=== PATIENT | male | born 1995 | race Caucasian/White ===

== ENCOUNTER 2016-06-04 04:19 | Emergency (ER) | payer OTHER ==
[2016-06-04] MEDS ORDERED: DIPH,PERTUS(ACELL)TETVAC-LF 0.5 ML VIAL IM ONE (04:29)
[2016-06-04] MEDS ORDERED: RX INFO: IV CONTRAST WAS GIVEN 1 EACH MISC MISCELLANE PRN (04:29)
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
[2016-06-04] MEDS ORDERED: ONDANSETRON 4 MG/2 ML VIAL IVP STA (04:48)
[2016-06-04 05:07] LABS: Glucose,Whole Blood 112 mg/dL (75-99)
[2016-06-04 05:20] LABS: Basophils % (A) 0 %; CH 32.3; CHCM 35.1; Eosinophils # (A) 0.1 k/uL (0-0.7); Eosinophils % (A) 0 %; HDW 2.45; HGB 16.8 gm/dL (13.0-17.5); Luc # (Auto) 0.18; Luc % (Auto) 1; Lymphocytes # (A) 1.8 k/uL (1.0-4.8); Lymphocytes % (A) 12 %; MCH 31.7 pg (25.0-35.0); MCHC 34.3 g/dL (31.0-37.0); MCV 92.3 fL (80.0-100.0); Mean Platelet Volume 7.6; Monocytes # (A) 0.8 k/uL (0-1.0); Monocytes % (A) 5 %; Neutrophils # (A) 12.5 k/uL (1.3-7.7); Neutrophils % (A) 82 %; RBC 5.31 m/uL (4.30-5.90); RDW 12.2 % (11.5-15.5); WBC 15.4 k/uL (3.8-10.6); WBC (Perox) 15.58
[2016-06-04 05:26] LABS: Partial Thromboplastin Time 23.4 sec (22.0-30.0); Prothrombin Time 10.5 sec (9.0-12.0)
[2016-06-04 05:28] LABS: ALT 62 U/L (21-72); AST 30 U/L (17-59); Alcohol 22 mg/dL; Alkaline Phosphatase 68 U/L (38-126); Amylase 56 U/L (30-110); Anion Gap 13 mmol/L; Blood Urea Nitrogen 12 mg/dL (9-20); Calcium 9.4 mg/dL (8.4-10.2); Carbon Dioxide 24 mmol/L (22-30); Chloride 107 mmol/L (98-107); Glucose 111 mg/dL (74-99); Non-African American GFR(MDRD) >60 (>60 ml/min/1.73 sqM); Sodium 144 mmol/L (137-145); Total Bilirubin 0.7 mg/dL (0.2-1.3); Total Protein 7.7 g/dL (6.3-8.2)
[2016-06-04 05:39] LABS: Creatine Kinase 232 U/L (55-170)
[2016-06-04 05:52] LABS: Creatine Kinase MB 1.1 ng/mL (0.0-2.4); Troponin I <0.012 ng/mL (0.000-0.034)
[2016-06-04] MEDS ORDERED: ceFAZolin 2 GM in SODIUM CHLORIDE 0.9% 100 ML IVPB STA (07:14)
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
[2016-06-04 08:18] LABS: Appearance,Urine Clear (Clear); Bilirubin,Urine Negative (Negative); Glucose,Urine (UA) Negative (Negative); Ketones,Urine 1+ (Negative); Leukocyte Esterase,Urine Negative (Negative); Mucus,Urine Rare /hpf; Nitrite,Urine Negative (Negative); Particle Count 487; Protein,Urine Negative (Negative); Specific Gravity,Urine 1.014 (1.001-1.035); UA Billing (MACRO vs. MICRO) MICRO; Urobilinogen,Urine <2.0 mg/dL (<2.0)
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
== END 2016-06-04 08:30 | disposition other institution (70) ==
LOC: EC 04:19
DX: S02.81XA Fracture of other specified skull and facial bones, right side, initial encounter for closed fracture (principal); S02.0XXA Fracture of vault of skull, initial encounter for closed fracture; G93.89 Other specified disorders of brain; S06.5X9A Traumatic subdural hemorrhage with loss of consciousness of unspecified duration, initial encounter; V47.6XXA Car passenger injured in collision with fixed or stationary object in traffic accident, initial encounter; Z23 Encounter for immunization
CPT/HCPCS: 99291; 96374; 36415; 93005; 86900; 86901; 80053; 82150; 82550; 82553; 83690; 84484; 85025; 85610; 85730; 86850; 81001; 80306; 80320; 71010; 72170; 72125; 70450; 71260; 74177; 90715; J0690; J2405; Q9967; 99283

== ENCOUNTER 2019-07-27 17:41 | Emergency (ER) | payer OTHER ==
[2019-07-27] MEDS ORDERED: HYDROcodone/APAP 5-325MG 1 EACH TAB PO STA (18:03)
--- NOTE | 2019-07-27 18:28 | XR ---
EXAMINATION TYPE: XR finger LT DATE OF EXAM: 07/27/2019 COMPARISON: NONE HISTORY: Left finger injury and pain, second digit TECHNIQUE: 3 views of the left second digit were obtained FINDINGS: Soft tissue swelling diffusely of the left second digit. However no acute fracture or dislo cation is seen. No radiopaque foreign body identified. No osseous laceration. IMPRESSION: Soft tissue swelling of the left second digit diffusely with no acute fracture or disloca tion seen.
[2019-07-27] MEDS ORDERED: LIDOCAINE 1% INJ 10MG/ML (20 ML MDV) SQ ONE (18:39)
--- NOTE | 2019-07-27 19:18 | ED ---
General Adult HPI - General Chief complaint: Skin/Abscess/Foreign Body Stated complaint: infection in finger Time Seen by Provider: 07/27/19 17:52 Source: patient Mode of arrival: ambulatory Limitations: no limitations - History of Present Illness Initial comments: Patient is a 24-year-old male presenting to emergency Department with a chief complaint of a finger infection. States about 3 days ago he was working outside and states that could possibly benefit finger with a possible insect bite causes finger to gradually swell up. Patient states he went to [facility] yesterday and was discharged with some ibuprofen. States the swelling continued. States the pain is constant up. States Feels like there is pressure in the finger. Denies any fevers or chills. He reports limited range of motion due to swelling. - Related Data Home Medications Medication Instructions Recorded Confirmed No Known Home Medications 03/16/15 03/11/17 Allergies Allergy/AdvReac Type Severity Reaction Status Date / Time No Known Allergies Allergy Verified 07/27/19 17:45 Review of Systems ROS Statement: Those systems with pertinent positive or pertinent negative responses have been documented in the HPI. ROS Other: All systems not noted in ROS Statement are negative. Past Medical History Past Medical History: No Reported History History of Any Multi-Drug Resistant Organisms: None Reported Past Surgical History: Hernia Repair, Orthopedic Surgery Additional Past Surgical History / Comment(s): Right hand surgery Past Psychological History: No Psychological Hx Reported Smoking Status: Never smoker Past Alcohol Use History: None Reported Past Drug Use History: None Reported General Exam Limitations: no limitations General appearance: alert, in no apparent distress Head exam: Present: atraumatic, normocephalic, normal inspection Eye exam: Present: normal appearance, PERRL, EOMI Pupils: Present: normal accommodation ENT exam: Present: normal exam Neck exam: Present: normal inspection Respiratory exam: Present: normal lung sounds bilaterally Cardiovascular Exam: Present: regular rate, normal rhythm, normal heart sounds Extremities exam: Present: tenderness, normal capillary refill, other (+2 ulnar and radial pulses bilaterally.). Absent: normal inspection (Left second digit swelling. Hematoma on the middle phalange he of the left second digit. Mild erythema. No signs of felon), full ROM (Limited range of motion left second digit of pain.) Back exam: Present: normal inspection, full ROM Neurological exam: Present: alert, oriented X3 Psychiatric exam: Present: normal affect, normal mood Skin exam: Present: warm, dry, intact, normal color Course Vital Signs 07/27/19 17:45 Temperature 98.5 F Pulse Rate 116 H Respiratory 20 Rate Blood Pressure 151/106 O2 Sat by Pulse 99 Oximetry Procedures - Incision & Drainage Consent Obtained: verbal consent Indication: Swelling, hematoma Site: hand (Left second digit) Size (cm): 2 Anesthetic Used: lidocaine 1% Amount (mLs): 3 I&D Cleaning Method: Chloroprep, Alcohol Wipe Sterile Field Used?: No Scalpel Used: #11 Needle Aspiration Performed?: No Irrigation Performed?: No I&D Drainage Obtained: Blood Culture Obtained?: No Complications: pain, bleeding Patient Tolerated Procedure: well, no complications Medical Decision Making - Medical Decision Making Patient is 24-year-old male presenting to the emergency department with chief complaint of finger infection. Symptoms of an ongoing for the last 2 days. No signs of lymphangitis. Swelling mostly localized to the middle phalange of the left second digit. Neurovascularly intact. I and D performed to relieve pressure. Patient reports immediate relief after I&D. Patient discharged on Bactrim. Return parameters discussed. also exmained the patient and is in agreement with treatment plan Disposition Clinical Impression: Finger injury, Finger swelling Disposition: HOME SELF-CARE Condition: Stable Instructions (If sedation given, give patient instructions): Incision and Drainage (ED) Additional Instructions: Apply warm water and push any access pus out of the finger. Alternate between Tylenol Motrin for pain control. Return to emergency department if symptoms worsen. Is patient prescribed a controlled substance at d/c from ED?: No Referrals: None,Stated [Primary Care Provider] - 1-2 days Time of Disposition: 19:18
[2019-07-27] MEDS ORDERED: SULFAMETH-TMP DS STARTER PACK 2 TAB BTL PO STA (19:21)
[2019-07-27 19:26] VITALS: BP 136/72; PULSE 92; RESP 18; TEMP 98.2
== END 2019-07-27 19:26 | disposition home or self-care (01) ==
LOC: EC 17:41
DX: S60.022A Contusion of left index finger without damage to nail, initial encounter (principal); X58.XXXA Exposure to other specified factors, initial encounter
CPT/HCPCS: 73140; 99283; 10060; J2001

== ENCOUNTER 2019-07-28 | Emergency (ER) | payer OTHER | END 2019-07-28 05:38 | disposition other institution (70) | CPT/HCPCS: 36415; 93005; 80053; 83735; 84100; 85025; 87040; 99285; 96365; 96366 ×2; 96367; 96375 ×3; 96376; J3370; J2270; J2405; J0696; J1170 ==